=== PATIENT | male | born 1950 | race Caucasian/White ===

== ENCOUNTER 2019-04-13 11:42 | Outpatient (CLI) | payer MEDICARE, OTHER, SELFPAY ==
--- NOTE | 2019-04-13 11:57 | XR_ITS ---
WS: [id number] XR chest 2V* [id number] REASON FOR EXAM: EDEMA/DYSPNEA FINDINGS: There is scarring off the left lower lung. Subsegmental atelectasis is seen over the diaphr agm. There is hyper aerated lung suggesting chronic obstructive pulmonary disease. The heart was not grossly enlarged there is arteriosclerotic changes seen. There was no evidence of pneumonia or heart failure. XR/XR chest 2V* [id number] IMPRESSION: Calcaneal the left hemidiaphragm with scarring There is scarring subsegmental over the diaphragm. There is mild chronic obstructive pulmonary disease. Arteriosclerotic changes.
== END 2019-04-13 11:43 | disposition home or self-care (01) ==
LOC: RAD 11:50
PROVIDERS: Family Provider Family Medicine; PCP Family Medicine; Visit Provider Family Medicine
DX: J44.9 Chronic obstructive pulmonary disease, unspecified (principal); I25.10 Atherosclerotic heart disease of native coronary artery without angina pectoris; R06.02 Shortness of breath; R60.9 Edema, unspecified
CPT/HCPCS: 71046

== ENCOUNTER 2019-07-06 13:59 | Outpatient (CLI) | payer MEDICARE, OTHER, SELFPAY ==
--- NOTE | 2019-07-06 14:42 | PFTS_ITS ---
Date of Study:07/06/19 Date of Dictation: MECHANICS: Forced vital capacity (FVC) is reduced. Forced expiratory volume in one second (FEV1) is reduced. FEV1/FVC is reduced. FLOW VOLUME LOOP: Significant scooping. LUNG VOLUMES: Total lung capacity (TLC) is normal. Residual volume (RV) is normal. DIFFUSING CAPACITY FOR CARBON MONOXIDE: Normal. INTERPRETATION: The pulmonary function tests are consistent with moderate airflow obstruction. There is no significant postbronchodilator response. Lung volumes are normal. Gas exchange (DLCO) is normal. MTDD
== END 2019-07-06 14:00 | disposition home or self-care (01) ==
LOC: RT 14:06
PROVIDERS: PCP Family Medicine; Visit Provider Family Medicine
DX: R06.00 Dyspnea, unspecified (principal); R60.9 Edema, unspecified
CPT/HCPCS: 94060; 94726; 94729; J7611

== ENCOUNTER 2019-08-01 13:53 | Outpatient (CLI) | payer MEDICARE, OTHER, SELFPAY ==
--- NOTE | 2019-08-01 14:02 | USCV_ITS ---
Sekou Gordon Age: 69 Gender: M : 1950 Exam Date: 08/01/2019 14:13 Ordering Phys: Alexander Barron MD Technologist: Kendall Ray Exam Location: [facility] [place] Indication: CP SOB BP: 145 / 90 HR: 58 Rhythm: Sinus Technical Quality: Adequate MEASUREMENTS (Male / Female) Normal Values 2D ECHO LV Diastolic Diameter PLAX 4.1 cm 4.2 - 5.9 / 3.9 - 5.3 cm LV Systolic Diameter PLAX 3.6 cm IVS Diastolic Thickness 1.0 cm 0.6 - 1.0 / 0.6 - 0.9 cm IVS Systolic Thickness 1.6 cm LVPW Diastolic Thickness 1.3 cm 0.6 - 1.0 / 0.6 - 0.9 cm LVPW Systolic Thickness 1.5 cm LVOT Diameter 2.1 cm LV Ejection Fraction 2D Teich 29.0 % LV Ejection Fraction MOD 2C 64.6 % LV Ejection Fraction 2C AL 64.7 % LA Diameter 4.6 cm LA Width 3.4 cm LA Height 5.3 cm RA Width 2.9 cm RA Height 3.9 cm Aorta at Sinotubular Diameter 3.3 cm M-MODE LV Diastolic Diameter MM 4.9 cm 4.2 - 5.9 / 3.9 - 5.3 cm LV Systolic Diameter MM 3.4 cm LV Ejection Fraction MM Teich 58.5 % IVS Diastolic Thickness MM 1.5 cm 0.6 - 1.0 / 0.6 - 0.9 cm IVS Systolic Thickness MM 1.6 cm LVPW Diastolic Thickness MM 1.5 cm 0.6 - 1.0 / 0.6 - 0.9 cm LVPW Systolic Thickness MM 2.0 cm RV Diastolic Diameter MM 2.0 cm Aortic Annulus Diameter 3.5 cm LA Ao Ratio MM 1.3 MV E Point Septal Separation 1.6 cm DOPPLER AV Peak Velocity 156.0 cm/s LVOT Peak Velocity 112.0 cm/s AV Area Cont Eq vti 2.4 cm squared AV Area Cont Eq pk 2.5 cm squared MV Area PHT 5.0 cm squared Mitral E to A Ratio 0.9 MV E' Velocity 10.0 cm/s Mitral E to MV E' Ratio 9.4 Mitral E to LV E' Lateral Ratio 7.1 Mitral E to LV E' Septal Ratio 14.3 TR Peak Velocity 287.0 cm/s TR Peak Gradient 33.0 mmHg Right Atrial Pressure 3.0 mmHg Pulmonary Artery Systolic Pressu 35.9 mmHg PV Peak Velocity 97.0 cm/s FINDINGS Left Ventricle Normal left ventricular size, systolic function and wall thickness, with no regional wall motion abnormalities. Left ventricular ejection fraction is estimated at 61 %. Normal diastolic function. Right Ventricle Normal right ventricular size and systolic function, RVSP 35.9 mmHg. Right Atrium Normal right atrial size. Left Atrium Normal left atrial size. Mitral Valve Structurally normal mitral valve. No mitral valve stenosis. Trace mitral valve regurgitation. Aortic Valve Aortic valve not well visualized. Probably tricuspid aortic valve. No aortic valve stenosis. No aortic valve regurgitation. Tricuspid Valve Structurally normal tricuspid valve. Trace tricuspid valve regurgitation. Pulmonic Valve Pulmonic valve not well visualized. No pulmonary valve stenosis. Pericardium No pericardial effusion. Aorta Normal size aortic root and proximal ascending aorta. CONCLUSIONS 1. Ultrasound enhancing agent (Optison) was used. 2. Normal left ventricular size, systolic function and wall thickness, with no regional wall motion abnormalities. Left ventricular ejection fraction is estimated at 61 %. Normal diastolic function. 3. Normal right ventricular size and systolic function. 4. Mild pulmonary hypertension with pulmonary artery pressure estimated at 36 mmHg. 5. No significant valvular abnormality. 6. No prior similar studies to compare. Anabell Skaggs MD (Electronically Signed) Final Date: 02 August 2019 17:04 S
[2019-08-01] MEDS: perflutren protein-a microsphr 0.22 mg/mL SDV 3 mL IV (15:06)
== END 2019-08-01 13:54 | disposition home or self-care (01) ==
LOC: RAD 13:55
PROVIDERS: PCP Family Medicine; Visit Provider Family Medicine
DX: R06.02 Shortness of breath (principal); R60.9 Edema, unspecified; I27.20 Pulmonary hypertension, unspecified
CPT/HCPCS: C8929; Q9956

== ENCOUNTER 2019-11-11 23:19 | Emergency (ER) | payer MEDICARE, OTHER, SELFPAY ==
[2019-11-11 23:22] VITALS: BP 206/123; PULSE 81; RESP 20; TEMP 36.7; O2SAT 92; BMI 40.6
--- NOTE | 2019-11-11 23:31 | W.ED.EYEPROB ---
HPI - Eye Problem General: Chief complaint: Eye Problems Stated complaint: blurred vision Time Seen by Provider: 11/11/19 23:31 History of Present Illness: HPI Narrative: Patient is a 69-year-old male comes to the ED with bilateral blurry vision, redness and periorbital swelling. Patient says that this morning he woke up and his vision seemed a little smoky. He then put some Visine eyedrops in both eyes. Patient said he knows the Visine eyedrops were old but unsure if they were . He laid down for a nap around noon when he woke up both eyes were red and starting to bother him. Patient used eyedrops again. Around dinnertime this started getting swollen and his eyelids are swelling as well. Patient said he is also having nasal drainage that started within the past couple hours. Denies wearing contacts, eye injury, foreign body in eye, exposure to chemicals, smoke exposure. Associated symptoms: Denies fever(s), headache(s), nausea, neck pain or vomiting Review of Systems Const: Denies: fever(s), chills or fatigue Eyes: Reports: blurry vision, eye discomfort, eye discharge (watery discharge) and eye redness; Denies: change in vision or photophobia ENMT: Denies: throat pain, odynophagia, nasal discharge or nasal congestion Card: Denies: chest pain, palpitations, edema, swelling of feet/ankles, dyspnea on exertion or orthopnea Resp: Denies: dyspnea, productive cough or non-productive cough GI: Denies: abdominal pain, nausea, vomiting, diarrhea, constipation or hematochezia : Denies: flank pain, difficulty urinating, dysuria or hematuria Musc: Denies: neck pain, back pain or extremity swelling Skin/Breast: Denies: rash or new lesions Neuro: Denies: headache(s), numbness in extremities or weakness in extremities PFSH ED PFSH: Medical History Benign neoplasm of neck Hiatal hernia Surgical History H/O hernia repair Status post surgical removal of neoplasm of skin Family History Sister Cancer Father Lung disease Social History Smoking and tobacco status: former smoker Quit status (tobacco): has quit using tobacco Year quit tobacco: 1984 - 2PPD x 20 Years Alcohol intake: current Alcohol intake frequency: few times a week Lives independently: Yes Household members: family Marital status: Current occupational status: retired History of recent travel: No Current gender identity: Male Physical Exam Const: COMMON NORMALS: patient oriented x3 GENERAL APPEARANCE: cooperative and comfortable HENMT: COMMON NORMALS: normocephalic HEAD & SCALP: normocephalic MOUTH: Normal oral and palatal mucosa present THROAT: posterior oropharynx normal and uvula midline Eye: COMMON NORMALS: Equal, round and reactive pupils present and EOMs intact bilaterally GENERAL EYE: normal light reflex PERIORBITAL: periorbital findings abnormal positive bilateral periorbital swelling EYELID: eyelid abnormality (Bilateral upper and lower lids swelling.) CONJUNCTIVA: Yes conjunctival abnormal positive bilateral conjunctival injection and other (Edema) PUPIL: Yes Equal, round and reactive pupils present DIRECT OPHTHALMOSCOPY: Yes normal light reflex and No photophobia SLIT LAMP EXAM: Yes slit lamp exam performed with fluorescein and Yes conjunctiva/sclera OTHER: Fluorescein dye placed in both eyes and it showed diffuse patchy uptake. Tetracaine eyedrops used in both eyes bilaterally and pain and discomfort greatly improved. Neck/C-Spine: COMMON NORMALS: supple GENERAL: Yes normal visual inspection Resp: COMMON NORMALS: normal respiratory effort, No retractions, No use of accessory muscles and clear to auscultation bilaterally AUSCULTATION: clear to auscultation bilaterally Cardio: COMMON NORMALS: regular rate, regular rhythm, S1 normal heart sound present, S2 normal heart sound present, No gallops present (Cardio), No clicks present (Cardio), No murmurs present (Cardio) and Peripheral pulses 2+ throughout RATE: regular rate RHYTHM: regular rhythm HEART SOUNDS: S1 normal heart sound present and S2 normal heart sound present PERIPHERAL PULSES: Peripheral pulses 2+ throughout GI: COMMON NORMALS: Normal to inspection, nondistended, normoactive bowel sounds present, Soft to palpation, non-tender and no masses PALPATION: Yes Soft to palpation : COMMON NORMALS: Yes no CVA tenderness BLADDER/KIDNEY EXAM: Yes no CVA tenderness Back/Pelvis: COMMON NORMALS: no CVA tenderness Neuro: COMMON NORMALS: patient oriented x3 and moves all extremities Course Vital Signs: Vital signs: Vital Signs Temperature 98.1 F 11/11/19 23:22 Pulse Rate 77 11/12/19 01:03 Respiratory Rate 18 11/12/19 01:03 Blood Pressure 194/92 11/12/19 01:03 Pulse Oximetry 97 11/12/19 01:03 MDM - Eye Problem MDM Narrative: Medical decision making narrative: Patient is a 69-year-old male comes to the ED with bilateral eye pain, redness and edema. Symptoms started within the last 12 hours. Patient says he woke up this morning and his vision was a little cloudy. He used some Visine eyedrops and is unsure if they were but did say it is an old bottle. Couple hours after placing eyedrops he laid down for a nap and woke up and started developing eye redness pain and blurry vision. He used eyedrops again and symptoms continued to get worse. Denies any other trauma to eye, exposure to chemicals or any other eye irritant. Physical exam showed bilateral conjunctivitis with upper and lower eyelid swelling bilaterally. Tetracaine eyedrops used in his pain and eye discomfort improved. fluorescein dye and lamp used and Fluorescein dye placed in both eyes and it showed diffuse patchy uptake. EOMs intact and pupils were equal round and reactive. Clinical and exam findings suggestive of keratitis. Patient was given a dose of Solu-Medrol and Benadryl while here in the ED did help with symptoms. Patient was also given erythromycin eye ointment while here in the ED and sent home with a prescription for erythromycin eye ointment, ketorolac eyedrops and oral prednisone. I gave him [facility] contact information and told him to give them a call on Wednesday to set up an appointment to be reevaluated. Return to ED precautions given. Patient understood and agreed with plan. Discharge Plan Discharge Patient Disposition: Home Clinical Impression: Keratitis, bilateral Condition: Stable Prescriptions: New erythromycin 5 mg/gram (0.5 %) ointment 1 applic ophthalmic (eye) QID Qty: 3.5 RF: 0 ketorolac 0.5 % drops 1 drop ophthalmic (eye) Q6H PRN (Reason: edema) Qty: 5 RF: 0 prednisone 50 mg tablet 50 mg PO DAILY 5 Days Qty: 5 RF: 0 No Action Stiolto Respimat 2.5-2.5 mcg/actuation mist 2 puff INHALATION Q24H 30 Days Qty: 4 RF: 4 furosemide [Lasix] 20 mg tablet 40 mg PO DAILY 30 Days Qty: 60 RF: 4 Discharge Orders: Discharge Order (Routine); Ordered 11/12/19 Ordered By: Manjit Benjamin Referrals: Alexander Barron MD [Primary Care Provider] - Discharge Diet: Regular Discharge Activity: Increase activity as tolerated Patient Instructions: Keratitis (ED) Activity Restrictions/Additional Instructions: Follow-up with medical provider as directed. Call [facility] on Wednesday morning phone number is [phone]. Address is [facility] [address] Heard. take medications as prescribed. Return to the ER or your medical provider if condition worsens. Please read and understand discharge instructions. If any questions, please ask. You can also take [id number] Benadryl or Claritin daily to help with symptoms as well. Discharge Date/Time: 11/12/19 01:04 Coding Level of Care Code ED [employer] for Brandon Fwluther Exam Comprehensive
[2019-11-11] MEDS: fluorescein 1 mg Strip EYE-BOTH (23:57)
[2019-11-11] MEDS: tetracaine 0.5% Op Soln 4 mL Btl 1 DROP EYE-BOTH (23:57)
[2019-11-11] MEDS: eye irrigation 30 mL Btl EYE-BOTH (23:57)
[2019-11-12] MEDS: diphenhydrAMINE 25 mg Capsule PO (00:15)
[2019-11-12] MEDS: erythromycin Op Oint 1 gm 1 APPLIC EYE-BOTH (01:02)
[2019-11-12 01:03] VITALS: BP 194/92; PULSE 77; RESP 18; O2SAT 97
== END 2019-11-12 01:04 | disposition home or self-care (01) ==
PROVIDERS: Emergency Provider Physician Assistant; PCP Family Medicine
DX: H16.9 Unspecified keratitis (principal); Z87.891 Personal history of nicotine dependence
CPT/HCPCS: 12345; 96372; 99281; 99283; J2930

== ENCOUNTER → 2021-04-09 14:57 | Outpatient (BNVA) | payer MEDICARE, OTHER, SELFPAY | PROVIDERS: PCP Family Medicine; Visit Provider Internal Medicine Critical Care Medicine | DX: Z20.822 Contact with and (suspected) exposure to COVID-19 (principal); J44.9 Chronic obstructive pulmonary disease, unspecified | CPT/HCPCS: 87635 ==

== ENCOUNTER 2021-04-15 09:27 | Outpatient (CLI) | payer MEDICARE, OTHER, SELFPAY ==
--- NOTE | 2021-04-15 12:42 | PFTS_ITS ---
Date of Study:04/15/21 Date of Dictation:12/2021 MECHANICS: Postbronchodilator forced vital capacity (FVC) is reduced. Postbronchodilator forced expiratory volume in one second (FEV1) is moderately reduced 53% FEV1/FVC is reduced. There is significant response to bronchodilators. FLOW VOLUME LOOP: Scooping of expiratory limb suggestive of airway obstruction. LUNG VOLUMES: Total lung capacity (TLC) is mildly reduced 75 %.. Residual volume (RV) is normal. DIFFUSING CAPACITY FOR CARBON MONOXIDE: Normal . INTERPRETATION: The postbronchodilator spirometry is consistent with moderate obstruction. There is significant response to bronchodilators. Lung volumes also suggestive of mild restriction. Gas transfer is normal. Correlate clinically. MTDD
== END 2021-04-15 09:28 | disposition home or self-care (01) ==
LOC: RT 09:27
PROVIDERS: PCP Family Medicine; Visit Provider Internal Medicine Critical Care Medicine
DX: J44.9 Chronic obstructive pulmonary disease, unspecified (principal)
CPT/HCPCS: 94060; 94618; 94726; 94729; J7611

== ENCOUNTER → 2021-05-07 10:26 | Outpatient (BNVA) | payer MEDICARE, OTHER, SELFPAY | PROVIDERS: PCP Family Medicine; Visit Provider Internal Medicine Critical Care Medicine | DX: J44.9 Chronic obstructive pulmonary disease, unspecified (principal); R60.9 Edema, unspecified; E66.01 Morbid (severe) obesity due to excess calories; Z68.41 Body mass index [BMI] 40.0-44.9, adult; G47.10 Hypersomnia, unspecified; J96.11 Chronic respiratory failure with hypoxia; Z87.891 Personal history of nicotine dependence | CPT/HCPCS: 99214 ==

== ENCOUNTER 2021-06-02 14:48 | Outpatient (CLI) | payer MEDICARE, OTHER, SELFPAY | END 2021-06-02 14:49 | disposition home or self-care (01) | LOC: ONCMED 14:55 → PULRHB 15:04 | PROVIDERS: PCP Family Medicine; Visit Provider Internal Medicine Critical Care Medicine | DX: J44.9 Chronic obstructive pulmonary disease, unspecified (principal) | CPT/HCPCS: 94626 ==

== ENCOUNTER 2021-06-11 16:42 | Outpatient (RCR) | payer MEDICARE, OTHER, SELFPAY | END 2021-07-08 23:59 | disposition home or self-care (01) | LOC: PULRHB 16:42 | PROVIDERS: PCP Family Medicine; Visit Provider Internal Medicine Critical Care Medicine | DX: J44.9 Chronic obstructive pulmonary disease, unspecified (principal) | CPT/HCPCS: 94626 ==

== ENCOUNTER 2021-07-09 06:00 | Outpatient (RCR) | payer MEDICARE, OTHER, SELFPAY | END 2021-08-07 23:59 | disposition home or self-care (01) | LOC: PULRHB 06:00 | PROVIDERS: PCP Family Medicine; Visit Provider Internal Medicine Critical Care Medicine | DX: J44.9 Chronic obstructive pulmonary disease, unspecified (principal) | CPT/HCPCS: 94626; G0239 ==

== ENCOUNTER 2021-08-08 06:00 | Outpatient (RCR) | payer MEDICARE, OTHER, SELFPAY | END 2021-09-07 23:59 | disposition home or self-care (01) | LOC: PULRHB 06:00 | PROVIDERS: PCP Family Medicine; Visit Provider Internal Medicine Critical Care Medicine | DX: J44.9 Chronic obstructive pulmonary disease, unspecified (principal) | CPT/HCPCS: 94626 ==

== ENCOUNTER 2021-08-18 11:00 | Outpatient (CLI) | payer MEDICARE, OTHER, SELFPAY | END 2021-08-18 11:01 | disposition home or self-care (01) | LOC: SLEEP 08-21 12:44 | PROVIDERS: PCP Family Medicine; Visit Provider Internal Medicine Critical Care Medicine | DX: G47.10 Hypersomnia, unspecified (principal); G47.33 Obstructive sleep apnea (adult) (pediatric) | CPT/HCPCS: G0399 ==

== ENCOUNTER 2021-09-08 06:00 | Outpatient (RCR) | payer MEDICARE, OTHER, SELFPAY | END 2021-10-08 23:59 | disposition home or self-care (01) | LOC: PULRHB 06:00 | PROVIDERS: PCP Family Medicine; Visit Provider Internal Medicine Critical Care Medicine | DX: J44.9 Chronic obstructive pulmonary disease, unspecified (principal) | CPT/HCPCS: 94626 ==

== ENCOUNTER 2021-10-16 13:51 | Outpatient (CLI) | payer MEDICARE, OTHER, SELFPAY ==
--- NOTE | 2021-10-16 14:08 | XR_ITS ---
WS: [id number] KUB, AP view, 10/16/2021 Clinical Data: abd pain/ diarrhea Comparison: None. Findings: No abnormal intraabdominal masses or calcifications are seen. There is no dilatated small bowel or ev idence of obstruction. There is a large amount of fecal material throughout the colon. XR/XR KUB [id number] Impression: Negative KUB.
--- NOTE | 2021-10-16 14:08 | XR_ITS ---
WS: [id number] PA and lateral chest, 10/16/2021 Clinical Data: sob Comparison: PA and lateral chest, 04/13/2019. Findings: No nodules, masses or effusions are seen. There are bilateral patchy opacities which have d eveloped since the last chest x-ray. This could represent diffuse pneumonia both chronic and/or acute . There is scarring of the left costophrenic angle with elevation of the diaphragm and a pleuroperica rdial scar at the left base. The heart is normal. The aortic arch and descending thoracic aorta show tortuosity. No nodules or masses are seen. There is no pneumothorax. XR/XR chest 2V* [id number] Impression: 1. Bilateral patchy opacities which have developed in the last 2 years which co uld represent an acute and/or chronic pneumonia. 2. Chronic pleural, pericardial and diaphragmatic changes at the left lung base .
== END 2021-10-16 13:52 | disposition home or self-care (01) ==
PROVIDERS: PCP Family Medicine; Visit Provider Family Medicine
DX: R10.9 Unspecified abdominal pain (principal); R19.7 Diarrhea, unspecified; R06.02 Shortness of breath
CPT/HCPCS: 71046; 74018

== ENCOUNTER → 2021-11-07 10:00 | Outpatient (BNVA) | payer MEDICARE, OTHER, SELFPAY | PROVIDERS: PCP Family Medicine; Visit Provider Internal Medicine Critical Care Medicine | DX: J44.9 Chronic obstructive pulmonary disease, unspecified (principal); E66.01 Morbid (severe) obesity due to excess calories; Z68.41 Body mass index [BMI] 40.0-44.9, adult; G47.33 Obstructive sleep apnea (adult) (pediatric); J96.11 Chronic respiratory failure with hypoxia; R60.0 Localized edema; Z87.891 Personal history of nicotine dependence; Z99.81 Dependence on supplemental oxygen | CPT/HCPCS: 99214 ==

== ENCOUNTER 2021-11-26 20:00 | Outpatient (CLI) | payer MEDICARE, OTHER, SELFPAY | END 2021-11-26 20:01 | disposition home or self-care (01) | LOC: SLEEP 11-27 09:20 | PROVIDERS: PCP Family Medicine; Visit Provider Internal Medicine Critical Care Medicine | DX: G47.33 Obstructive sleep apnea (adult) (pediatric) (principal) | CPT/HCPCS: 95811 ==

== ENCOUNTER → 2022-05-07 09:21 | Outpatient (BNVA) | payer MEDICARE, OTHER, SELFPAY | PROVIDERS: PCP Family Medicine; Visit Provider Internal Medicine Pulmonary Disease | DX: J44.9 Chronic obstructive pulmonary disease, unspecified (principal); E66.01 Morbid (severe) obesity due to excess calories; Z68.41 Body mass index [BMI] 40.0-44.9, adult; G47.33 Obstructive sleep apnea (adult) (pediatric); J96.11 Chronic respiratory failure with hypoxia; R60.9 Edema, unspecified; Z87.891 Personal history of nicotine dependence; Z99.81 Dependence on supplemental oxygen | CPT/HCPCS: 99214 ==

== ENCOUNTER → 2022-05-25 14:53 | Outpatient (BNVA) | payer MEDICARE, OTHER, SELFPAY | PROVIDERS: PCP Family Medicine; Visit Provider Family Medicine | DX: N64.4 Mastodynia (principal); R60.9 Edema, unspecified; G47.33 Obstructive sleep apnea (adult) (pediatric); J18.9 Pneumonia, unspecified organism; E66.01 Morbid (severe) obesity due to excess calories; Z68.41 Body mass index [BMI] 40.0-44.9, adult | CPT/HCPCS: 80053; 83735; 84146; 84443 ==

== ENCOUNTER → 2023-02-11 09:11 | Outpatient (BNVA) | payer MEDICARE, OTHER, SELFPAY | PROVIDERS: PCP Family Medicine; Visit Provider Internal Medicine Pulmonary Disease | DX: J43.2 Centrilobular emphysema (principal); E66.01 Morbid (severe) obesity due to excess calories; Z68.41 Body mass index [BMI] 40.0-44.9, adult; G47.33 Obstructive sleep apnea (adult) (pediatric); J96.11 Chronic respiratory failure with hypoxia; R60.9 Edema, unspecified; Z12.2 Encounter for screening for malignant neoplasm of respiratory organs; Z87.891 Personal history of nicotine dependence | CPT/HCPCS: 99214 ==

== ENCOUNTER → 2023-10-28 14:03 | Outpatient (BNVA) | payer MEDICARE, OTHER, SELFPAY | PROVIDERS: PCP Family Medicine; Visit Provider Internal Medicine Critical Care Medicine | DX: R06.09 Other forms of dyspnea (principal); J43.2 Centrilobular emphysema; G47.33 Obstructive sleep apnea (adult) (pediatric); E66.01 Morbid (severe) obesity due to excess calories; Z68.41 Body mass index [BMI] 40.0-44.9, adult; Z71.3 Dietary counseling and surveillance; Z71.82 Exercise counseling; Z71.89 Other specified counseling | CPT/HCPCS: 99213 ==

== ENCOUNTER → 2023-11-30 08:11 | Outpatient (BNVA) | payer MEDICARE, OTHER, SELFPAY | PROVIDERS: PCP Family Medicine; Visit Provider Family Medicine | DX: E66.01 Morbid (severe) obesity due to excess calories (principal); Z68.41 Body mass index [BMI] 40.0-44.9, adult; J43.2 Centrilobular emphysema; R60.9 Edema, unspecified; I87.2 Venous insufficiency (chronic) (peripheral) | CPT/HCPCS: 80053; 80061 ==